=== PATIENT | male | born 1985 | race Caucasian/White ===

== ENCOUNTER 2016-10-29 15:55 | Emergency (ER) | payer SELFPAY ==
[2016-10-29 16:06] VITALS: BP 129/92
--- NOTE | 2016-10-29 16:11 | ED Physician Documentation ---
General Adult - HISTORIAN Historian: patient - HPI Stated Complaint: fit for confinement Chief Complaint: General Adult Additional Information: Was breathing fast and had tingling of arms and hands. Says he has a history of panic attacks and paranoia since 9 y/o. Out of residential 5 days and hasn't established provider relationship yet HX of admission to [facility]. Not suicidal or homicidal. - ROS CONST: no problems - PAST HX Past History: other (antisocial personality disorder) Allergies/Adverse Reactions: Allergies Allergy/AdvReac Type Severity Reaction Status Date / Time No Known Allergies Allergy Verified 10/29/16 16:06 Home Medications: Ambulatory Orders Medication Instructions Recorded NK [NK] 10/29/16 - SOCIAL HX Smoking History: cigarettes (1 PPD since teens) Alcohol Use: none Drug Use: marijuana, methamphetamines (last used May) - FAMILY HX Family History: No - VITAL SIGNS Vital Signs: Vital Signs Temp Pulse Resp BP Pulse Ox 98.6 F 91 H 24 129/92 99 10/29/16 15:57 10/29/16 15:57 10/29/16 15:57 10/29/16 15:57 10/29/16 15:57 - REVIEWED ASSESSMENTS Nursing Assessment Reviewed: Yes Vitals Reviewed: Yes General Adult Physical Exam - PHYSICAL EXAM GENERAL APPEARANCE: mild distress (anxious, quite talkative) EENT: eye inspection normal, ENT inspection normal NECK: normal inspection, supple RESPIRATORY: no resp distress BACK: normal inspection SKIN: normal color, other (multiple tattoos) EXTREMITIES: normal range of motion, no evidence of injury NEURO: CN's nml as tested, motor nml, sensation nml Discharge Clincal Impression: Health examination of prisoner Home Medications: Ambulatory Orders NK [NK] 10/29/16 Condition: Fair Disposition: 01 HOME, SELF-CARE Decision to Admit: NO Decision Time: 16:09
== END 2016-10-29 16:08 | disposition home or self-care (01) ==
LOC: ED 15:55
DX: Z02.89 Encounter for other administrative examinations (principal)
CPT/HCPCS: 99283